=== PATIENT | male | born 1965 | race Caucasian/White ===

== ENCOUNTER 2024-05-06 06:01 | Emergency (ER) | payer MEDICARE, MEDICAID, SELFPAY ==
--- NOTE | ~2024-05-06 | XR_ITS ---
Clinical Indication: Shortness of breath PA and lateral views of the chest: Comparison: None Findings: The lungs are clear, without evidence of focal consolidation or pleural effusion. Cardiome diastinal silhouette is within normal limits. Bones and soft tissues are unremarkable. Impression: Normal chest. Reviewed, dictated and finalized at [facility]. HEALTH PROVIDER Impression: Normal chest.
--- NOTE | ~2024-05-06 | CT_ITS ---
EXAMINATION: CT chest abdomen pelvis w con DATE: 05/06/2024 09:19 INDICATION: Chest and abdominal pain. Cough. TECHNIQUE: Computed tomography (CT) of the chest, abdomen, and pelvis was performed with 100 mL Omnip aque 350 intravenous contrast. Automated exposure control and iterative reconstruction technique were employed. The dose-length product was 1363.38 mGy-cm. COMPARISON: None FINDINGS: CHEST CT: There are tree-in-bud opacities in right lower lobe, left lower lobe, in left upper lobe. There are a irspace opacities in left upper lobe and left lower lobe. There are groundglass opacities in right up per lobe. These findings are consistent with pneumonia. No pleural effusion. The heart size is normal . No pericardial effusion. There are bridging endplate osteophytes at multiple levels in the spine, c onsistent with diffuse idiopathic skeletal hyperostosis (DISH). There is a chronic compression fractu re of T1. ABDOMEN/PELVIS CT: The liver, gallbladder, spleen, pancreas, adrenal glands, and kidneys are normal. There are bilateral inguinal hernias containing fat. The prostate is mildly enlarged. There is diverticulosis of the col on without evidence of diverticulitis. The appendix is normal. There are no pathologically enlarged l ymph nodes. There is a supraumbilical ventral hernia containing fat. There is no free intraperitoneal fluid. There is mild lumbar spondylosis. IMPRESSION: 1. Bilateral pneumonia. 2. Supraumbilical ventral hernia containing fat. Bilateral inguinal hernias containing fat. Reviewed, dictated and finalized at location [facility]. BUSINESS CLERK IMPRESSION: 1. Bilateral pneumonia. 2. Supraumbilical ventral hernia containing fat. Bilateral inguinal hernias con taining fat.
[2024-05-06 06:03] VITALS: BP 179/91; PULSE 85; RESP 18; TEMP 37.5; O2SAT 95
--- NOTE | 2024-05-06 07:32 | ED.GENADULT ---
HPI - General Adult General Chief complaint: Fever Stated complaint: been sick since friday, fever, cough Time Seen by Provider: 05/06/24 07:24 History of Present Illness HPI narrative: 58-year-old male present to the emergency department for evaluation for 3 days of cough congestion body aches and fatigue. Patient is a smoker but states he has not been smoking the last few days. Patient denies any sick contacts at home. Review of Systems Review of Systems: All systems reviewed & are unremarkable except as noted in HPI and below Exam Narrative: APPEARANCE: Ill-appearing HEAD: normocephalic, atraumatic. EYES: PERRLA/EOMI, conjunctivae clear. NOSE: Normal no drainage EARS:TMS clear with good light reflex. THROAT: Pharynx clear, no exudate. NECK: Supple. No adenopathy, no masses. RESPIRATORY: Airway patent, respirations nonlabored. Clear to auscultation bilaterally, no rales, rhonchi, wheezing. CARDIOVASCULAR: Regular rate and rhythm without murmurs rubs or gallops. ABDOMINAL: Soft, nontender, nondistended, normal bowel sounds MUSCULOSKELETAL: Moves all extremities. Strength/ROM intact, No edema, No calf tenderness. NEURO: Alert. Cranial nerves II through XII intact. Good gait. Good coordination SKIN: Warm, dry. Normal Color Course Vital Signs Vital signs: Vital Signs Temperature 99.5 F 05/06/24 06:03 Pulse Rate 85 05/06/24 06:03 Respiratory Rate 18 05/06/24 06:03 Blood Pressure 179/91 H 05/06/24 06:03 Pulse Oximetry 95 05/06/24 06:03 Oxygen Delivery Room Air 05/06/24 06:03 Temperature 99.5 F 05/06/24 06:03 Pulse Rate 76 05/06/24 12:09 Respiratory Rate 20 05/06/24 12:09 Blood Pressure 102/86 05/06/24 12:09 Pulse Oximetry 95 05/06/24 12:09 Oxygen Delivery Room Air 05/06/24 08:15 Medical Decision Making [facility] Narrative Medical decision making narrative: 58-year-old male presenting to the emergency department for evaluation for increased generalized weakness cough and shortness of breath. Patient is afebrile with no leukocytosis and hemoglobin of 15.1, patient has no acute abnormalities on his CMP patient was negative for influenza RSV and for COVID, patient was describing chest pain that radiated to his abdomen so CTA was ordered had evidence of bilateral pneumonia. Patient was started on Rocephin and azithromycin the emergency department. Patient was offered admission but states he feels improved prefers to be discharged home. Patient will be discharged home with Augmentin and his a throw along with Tessalon Perles and albuterol. Patient was strongly encouraged to return to the emergency department if any worsening symptoms. All questions concerns were addressed. Patient was well-appearing at time of discharge. Differential Diagnosis Differential Diagnosis: Pneumonia, pulmonary embolism, pneumothorax, intra-abdominal pathology Vital Signs Vital Signs: Vital Signs Temperature 99.5 F 05/06/24 06:03 Pulse Rate 85 05/06/24 06:03 Respiratory Rate 18 05/06/24 06:03 Blood Pressure 179/91 H 05/06/24 06:03 Pulse Oximetry 95 05/06/24 06:03 Oxygen Delivery Room Air 05/06/24 06:03 Temperature 99.5 F 05/06/24 06:03 Pulse Rate 76 05/06/24 12:09 Respiratory Rate 20 05/06/24 12:09 Blood Pressure 102/86 05/06/24 12:09 Pulse Oximetry 95 05/06/24 12:09 Oxygen Delivery Room Air 05/06/24 08:15 Lab Data Lab results reviewed: Yes I reviewed the patient's lab results. 05/06/24 08:22 05/06/24 08:22 Labs: Lab Results 05/06/24 05/06/24 Range/Units 07:32 08:22 WBC 8.2 (4.5-10.0) K/mm3 RBC 4.84 (4.6-6.20) M/mm3 Hgb 15.1 (14.0-18.0) g/dL Hct 44.3 (42.0-52.0) % MCV 91.5 (80-100) fl MCH 31.2 (26-34) pg MCHC 34.1 (32-36) g/dl RDW 12.3 (11.5-14.5) % Plt Count 159 (150-375) k/mm3 MPV 10.3 (7.4-10.4) fl Immature Gran % (Auto) 0.2 (0-0.5) % Neut % (Auto) 61.3 (45.5-73.1) % Lymph % (Auto) 22.8 (18.3-44.2) % [place] % (Auto) 14.0 H (2.6-8.5) % Eos % (Auto) 1.2 (0-4.4) % Baso % (Auto) 0.5 (0.2-1.2) % Lymph # (Auto) 1.87 (0.9-3.2) K/mm3 [place] # (Auto) 1.2 H (0.1-0.6) K/mm3 Eos # (Auto) 0.1 (0-0.3) K/mm3 Baso # (Auto) 0.0 (0.0-0.1) K/mm3 Abs Immat Gran (auto) 0.02 (0.00-0.031) K/mm3 Absolute Neuts (auto) 5.0 (1.3-6.7) K/mm3 Absolute Nucleated RBC 0.000 (0.0-0.012) K/mm3 Nucleated RBC % 0.0 (0.0-0.2) % PT 13.7 (11.1-14.7) Seconds INR 1.0 APTT 26.6 (22.3-36.8) Seconds Sodium 137 (137-145) mmol/L Potassium 3.6 (3.4-5.0) mmol/L Chloride 102 (98-107) mmol/L Carbon Dioxide 27 (22-30) mmol/L Anion Gap 8 (4-12) mmol/L BUN 14 (9-20) mg/dL Creatinine 0.80 (0.7-1.3) mg/dL Estim Creat Clear Calc 106 ml/min Estimated GFR > 60 (59 - ) Glucose 148 H (65-110) mg/dL Lactic Acid 1.0 (0.7-2.0) mmol/L Calcium 8.9 (8.4-10.2) mg/dL Total Bilirubin 1.4 H (0.2-1.3) mg/dL AST 26 (17-59) U/L ALT 25 (6-50) U/L Alkaline Phosphatase 78 (38-126) U/L Total Protein 8.0 (6.3-8.2) g/dL Albumin 4.3 (3.5-5.1) g/dL Lipase 54 (23-300) U/L Influenza A (RT-PCR) Negative (Negative) Influenza B (RT-PCR) Negative (Negative) RSV (RT-PCR) Negative (Negative) SARS-CoV-2 RNA (RT-PCR) Negative (Negative) Imaging Data Radiologist's impression: Impressions Chest X-Ray 05/06/24 07:59 Impression: Normal chest. Chest/Abdomen/Pelvis CT 05/06/24 09:19 IMPRESSION: 1. Bilateral pneumonia. 2. Supraumbilical ventral hernia containing fat. Bilateral inguinal hernias containing fat. Discharge Plan Discharge Clinical Impression: Bilateral pneumonia Patient Disposition: Home, Self-Care Condition: Stable Instructions: Antibiotic Form, Bacterial Pneumonia (ED) Additional Instructions: You were offered admission for your bilateral pneumonia but you preferred to be discharged to home, if you have any worsening symptoms please call or return to the emergency department. Antibiotics as directed until completed, albuterol inhaler as needed for shortness of breath. Tessalon Perles for cough. Have close follow-up with your primary care physician. Prescriptions: New amoxicillin-pot clavulanate 875-125 mg tablet 1 tablet PO Q12H Qty: 14 0RF azithromycin 250 mg tablet See Rx Instructions .ROUTE .COMPLEX Qty: 6 0RF Rx Instructions: For 250 mg dose pack: take 500 mg today (day 1), then 250 mg for 4 days (days 2-5) benzonatate 100 mg capsule 100 mg PO BID PRN (Reason: cough) Qty: 14 0RF albuterol sulfate 90 mcg/actuation HFA aerosol inhaler 1 inh inhalation QID PRN (Reason: shortness of breath or wheezing) Qty: 6.7 0RF Follow-up/Referrals: PHYSICIAN,CHILLER OPERATOR [Non-Staff] -
[2024-05-06 08:15] LABS: Influenza A QL RT-PCR Negative (Negative); Influenza B QL RT-PCR Negative (Negative); RSV RNA, RT-PCR Negative (Negative); SARS-CoV-2 RNA PCR Negative (Negative)
[2024-05-06 08:30] VITALS: BP 130/90; PULSE 78; RESP 16; O2SAT 94
[2024-05-06 08:35] LABS: Basophils Percent Auto 0.5 % (0.2-1.2); Eosinophils Absolute Auto 0.1 K/mm3 (0-0.3); Eosinophils Percent Auto 1.2 % (0-4.4); Hematocrit 44.3 % (42.0-52.0); Hemoglobin 15.1 g/dL (14.0-18.0); Immature Granulocyte Absolute 0.02 K/mm3 (0.00-0.031); Immature Granulocyte Percent A 0.2 % (0-0.5); Lymphocytes Absolute Auto 1.87 K/mm3 (0.9-3.2); Lymphocytes Percent Auto 22.8 % (18.3-44.2); Mean Corpuscular HGB Conc 34.1 g/dl (32-36); Mean Corpuscular Hemoglobin 31.2 pg (26-34); Mean Corpuscular Volume 91.5 fl (80-100); Mean Platelet Volume 10.3 fl (7.4-10.4); Monocytes Absolute Auto 1.2 K/mm3 (0.1-0.6); Neutrophils Percent Auto 61.3 % (45.5-73.1); Platelet Count Result 159 k/mm3 (150-375); Red Blood Count 4.84 M/mm3 (4.6-6.20); Red Cell Distribution Width 12.3 % (11.5-14.5); White Blood Count 8.2 K/mm3 (4.5-10.0)
[2024-05-06 08:49] LABS: Alanine Aminotransferase 25 U/L (6-50); Albumin Level 4.3 g/dL (3.5-5.1); Alkaline Phosphatase 78 U/L (38-126); Anion Gap 8 mmol/L (4-12); Aspartate Amino Transferase 26 U/L (17-59); Bilirubin,Total 1.4 mg/dL (0.2-1.3); Blood Urea Nitrogen 14 mg/dL (9-20); Calcium 8.9 mg/dL (8.4-10.2); Carbon Dioxide 27 mmol/L (22-30); Chloride 102 mmol/L (98-107); Estimated CRCL calculation 106 ml/min; Estimated Glomerular Filt Rate > 60; Glucose 148 mg/dL (65-110); Lipase 54 U/L (23-300); Potassium 3.6 mmol/L (3.4-5.0); Sodium 137 mmol/L (137-145)
[2024-05-06 08:50] LABS: Prothrombin Time 13.7 Seconds (11.1-14.7)
[2024-05-06 08:51] LABS: Partial Thromboplastin Time 26.6 Seconds (22.3-36.8)
[2024-05-06 09:30] VITALS: BP 147/82; PULSE 72; RESP 16; O2SAT 94
[2024-05-06 10:30] VITALS: BP 145/92; PULSE 71; RESP 16; O2SAT 94
[2024-05-06] MEDS: AZITHROMYCIN 500 MG/NS 250 ML 500 MG/250 ML BAG 250 MG IVPB (10:59)
[2024-05-06 12:09] VITALS: BP 102/86; PULSE 76; RESP 20; O2SAT 95
== END 2024-05-06 12:13 | disposition home or self-care (01) ==
PROVIDERS: Emergency Provider Emergency Medicine
DX: J18.9 Pneumonia, unspecified organism (principal); Z20.822 Contact with and (suspected) exposure to COVID-19; F17.200 Nicotine dependence, unspecified, uncomplicated; K43.9 Ventral hernia without obstruction or gangrene; K40.20 Bilateral inguinal hernia, without obstruction or gangrene, not specified as recurrent
CPT/HCPCS: 36415; 71046; 71260; 74177; 80053; 83605; 83690; 85025; 85610; 85730; 87040; 87637; 96365; 96367; 99284; J0456; J0696; Q9967